=== PATIENT | male | born 1980 | race Caucasian/White ===

== ENCOUNTER 2024-12-23 20:05 | Emergency (ER) | payer OTHER ==
[2024-12-23 20:08] VITALS: TEMP 98.5
--- NOTE | 2024-12-23 20:46 | ED ---
Recheck HPI - General Chief Complaint: Recheck/Abnormal Lab/Rx Stated Complaint: Withdrawl Time Seen by Provider: 12/23/24 20:14 Source: patient, RN notes reviewed Mode of arrival: ambulatory Limitations: no limitations - History of Present Illness Initial Comments: This is a 44-year-old male who presents to the emergency department requesting a dose of methadone. Patient was sent in by [facility] earlier today for concerns of an overdose. When he was discharged from this facility, [facility] reportedly took too long to pick him up and he wandered around outside. Because he temporarily left the hospital's property, [facility] formally discharged him. He is returning here today requesting a dose of methadone. States that he follows with [facility] clinic even though the treatment center discharged him and he is on a methadone taper. He is currently scheduled to be receiving 90 mg/day. States that he feels like he is going through withdrawals due to abdominal cramping and feeling somewhat clammy. States that his last dose was yesterday. - Related Data Home Medications Medication Instructions Recorded Confirmed Acetaminophen Tab [Tylenol] 650 mg PO Q4H PRN 12/23/24 12/23/24 Calcium Phos/D3/Magnesium/Zinc 1 tab PO TID PRN 12/23/24 12/23/24 [Mrctvma-Xsr-Ogii-Vitamin D3] Gabapentin [Neurontin] 300 mg PO BID 12/23/24 12/23/24 Methadone HCl [Methadone Intensol] 90 mg PO DAILY 12/23/24 12/23/24 Multivitamins, Thera [Multivitamin 1 tab PO DAILY 12/23/24 12/23/24 (formulary)] Nicotine Polacrilex [Nicotine Gum] 4 mg BC Q4H PRN 12/23/24 12/23/24 Thiamine [Vitamin B-1] 100 mg PO DAILY 12/23/24 12/23/24 Allergies Allergy/AdvReac Type Severity Reaction Status Date / Time ketorolac [From Toradol] AdvReac Rash/Hives Verified 12/23/24 20:08 Review of Systems ROS Statement: Those systems with pertinent positive or pertinent negative responses have been documented in the HPI. ROS Other: All systems not noted in ROS Statement are negative. Past Medical History Past Medical History: Unable to Obtain History of Any Multi-Drug Resistant Organisms: Unobtainable Past Surgical History: Unable to Obtain Past Psychological History: Unable to Obtain Smoking Status: Current every day smoker Past Alcohol Use History: Unable to Obtain Past Drug Use History: Methamphetamine, Opiates General Exam Limitations: no limitations General appearance: alert, in no apparent distress Head exam: Present: atraumatic, normocephalic, normal inspection Respiratory exam: Present: normal lung sounds bilaterally. Absent: respiratory distress, wheezes, rales, rhonchi, stridor Cardiovascular Exam: Present: regular rate, normal rhythm Neurological exam: Present: alert, oriented X3, CN II-XII intact Psychiatric exam: Present: normal affect, normal mood Skin exam: Present: warm, dry, intact, normal color. Absent: rash Course Vital Signs 12/23/24 12/23/24 12/23/24 20:07 22:14 22:37 Temperature 98.5 F Pulse Rate 101 H 61 60 Respiratory 18 17 17 Rate Blood Pressure 115/81 110/67 102/68 O2 Sat by Pulse 100 99 99 Oximetry Medical Decision Making - Medical Decision Making This is a 44 year old male who presents to the emergency department requesting a dose of methadone. Was pt. sent in by a medical professional or institution? @ -No Did you speak to anyone other than the patient for history? @ -No Did you review nursing and triage notes? @ -Yes, and I agree, it is accurate with regards to the patient's symptoms. Were old charts reviewed? @ -No Differential Diagnosis? @ -Withdrawals, intoxication, drug-seeking behavior, this is not meant to be an all-inclusive list. EKG interpreted by me (3pts min.)? @ -Not obtained X-rays interpreted by me (1pt min.)? @ -Not obtained CT interpreted by me (1pt min.)? @ -Not obtained U/S interpreted by me (1pt. min.)? @ -Not obtained What testing was considered but not performed? (CT, X-rays, U/S, labs)? Why? @ -None What meds were considered but not given? Why? @ -None Did you discuss the management of the patient with other professionals? @ -No Did you reconcile home meds? @ -No Was smoking cessation discussed for >3mins.? @ -No Was critical care preformed (if so, how long)? @ -No Were there social determinants of health that impacted care today? How? (Homelessness, low income, unemployed, alcoholism, drug addiction, transportation, low edu. Level, literacy, decrease access to med. care, [facility], rehab)? @ -No Was there de-escalation of care discussed even if they declined? (Discuss DNR or withdrawal of care, Hospice)? @ -No What co-morbidities impacted this encounter? (DM, HTN, Smoking, COPD, CAD, Cancer, CVA, Hep., AIDS, mental health diagnosis, sleep apnea, morbid obesity)? @ -History of drug addiction Was patient admitted / discharged? @ -Discharged. Patient provided a one-time dose of methadone, 90 mg, the dose he is currently on. Otherwise advised that he needs to follow-up with [facility] and cannot depend on the emergency department for additional doses of his medication. Patient expresses understanding and was discharged home in stable condition. Case discussed with ED attending Dr. Beltran. Return precautions reviewed in depth, the patient is instructed to return to the emergency department with any new, worsening, or concerning symptoms. Patient verbalized understanding. Undiagnosed new problem with uncertain prognosis? @ -None Drug Therapy requiring intensive monitoring for toxicity (Heparin, Nitro, Insulin, Cardizem)? @ -None Were any procedures done? @ -None Diagnosis/symptom? @ -Methadone dependence Acute, or Chronic, or Acute on Chronic? @ -Chronic Uncomplicated (without systemic symptoms) or Complicated (systemic symptoms)? @ -Uncomplicated Side effects of treatment? @ -None Exacerbation, Progression, or Severe Exacerbation] @ -Not applicable Poses a threat to life or bodily function? @ -No Disposition Clinical Impression: Methadone dependence Disposition: HOME SELF-CARE Additional Instructions: Return to the emergency department with any new, worsening, or concerning symptoms. Follow-up with [facility] outpatient tomorrow to continue on your methadone dosing. Is patient prescribed a controlled substance at d/c from ED?: No Referrals: Nonstaff,Physician [Primary Care Provider] - 1-2 days Time of Disposition: 21:36
[2024-12-23] MEDS: METHADONE 5 MG TAB PO STA (21:48)
[2024-12-23] MEDS: METHADONE 10 MG TAB PO ONE (22:14)
[2024-12-23 22:15] VITALS: RESP 17
[2024-12-23 22:39] VITALS: BP 102/68; PULSE 60
== END 2024-12-23 22:39 | disposition home or self-care (01) ==
LOC: EC 20:05
DX: F11.20 Opioid dependence, uncomplicated (principal); Z92.29 Personal history of other drug therapy; F17.200 Nicotine dependence, unspecified, uncomplicated; Z88.6 Allergy status to analgesic agent
CPT/HCPCS: 99283; S0109